=== PATIENT | female | born 2005 | race African-American/Black ===

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

== ENCOUNTER 2023-10-13 06:52 | Emergency (ER) | payer OTHER ==
[~2023-10-13] VITALS: Ht 177.8 cm; Wt 117.2 kg
[~2023-10-13 06:52] MED LIST changes: +OXYM15SP57 NASAL; +PSEU-191 PO; -PSEU-221 PO
[2023-10-13 07:03] VITALS: TEMP 98
[2023-10-13 08:08] LABS: BASOPHILS % (AUTO) 0.8 % (0.0-2.0); EOSINOPHILS % (AUTO) 1.5 % (1.0-6.0); HEMATOCRIT 33.6 % (36-46); HEMOGLOBIN 10.3 g/dL (12.0-16.0); LYMPHOCYTES # (AUTO) 3.3 K/uL (1.0-4.8); LYMPHOCYTES % (AUTO) 40.6 % (22.0-44.0); MEAN CORPUSCULAR HEMOGLOBIN 18.7 pg (26.0-34.0); MEAN CORPUSCULAR HGB CONC 30.7 G/dL (31.0-37.0); MEAN CORPUSCULAR VOLUME 61 fL (80-100); MONOCYTES # (AUTO) 0.5 K/uL (0.1-1.0); MONOCYTES % (AUTO) 6.8 % (2.0-9.0); NEUTROPHILS % (AUTO) 50.3 % (40.0-70.0); PLATELET COUNT (AUTO) 340 K/uL (150-450); RED CELL DISTRIBUTION WIDTH 19.9 % (11.5-14.5)
[2023-10-13 08:10] LABS: ANION GAP 13 mmol/L (8-16); CALCIUM, TOTAL 8.9 mg/dL (8.8-10.5); CARBON DIOXIDE 25 mmol/L (22-29); CHLORIDE 101 mmol/L (98-107); CREATININE 0.75 mg/dL (0.60-1.30); GLOMERULAR FILTR. RATE CALC > 60 mL/min (>60); GLUCOSE,RANDOM 121 mg/dL (70-110); POTASSIUM 3.1 mmol/L (3.5-5.1); SODIUM SERUM 139 mmol/L (136-145); UREA NITROGEN, BLOOD 7 mg/dL (7-18)
[2023-10-13 08:20] LABS: TROPONIN I-HIGH SENSITIVITY Less Than 4 ng/L (<51)
[2023-10-13 08:23] LABS: D-DIMER 0.27 mg/L FEU (0.00-0.50); PROTHROMBIN TIME 10.6 SEC (9.4-11.6)
[2023-10-13] MEDS: LORazepam 1 MG TABLET PO ONE (10:22)
[2023-10-13 11:10] VITALS: BP 129/68; PULSE 91; RESP 20
== END 2023-10-13 11:56 | disposition home or self-care (01) ==
LOC: EMS 06:53
DX: M54.9 Dorsalgia, unspecified (principal); F41.9 Anxiety disorder, unspecified
CPT/HCPCS: 71045; 80048; 84484; 85025; 85379; 85610; 93005; 99284; 36415-L1; 36415-TC

== ENCOUNTER 2024-06-19 08:57 | Emergency (ER) | payer OTHER ==
[~2024-06-19] VITALS: Ht 177.8 cm; Wt 117.3 kg
[~2024-06-19 08:57] MED LIST changes: -OXYM15SP57 NASAL; +OXYM15SP63 NASAL
[2024-06-19 09:09] VITALS: BP 130/79; PULSE 103; RESP 16; TEMP 98.1; O2SAT 98
[2024-06-19] MEDS: IBUPROFEN 600 MG TABLET PO ONE (10:16)
[2024-06-19] MEDS: LORazepam 1 MG TABLET PO ONE (10:16)
[2024-06-19] MEDS: LIDOCAINE 5% TRANSDERMAL PATCH TD ONE (10:17)
== END 2024-06-19 10:41 | disposition home or self-care (01) ==
LOC: EMS 08:59
DX: F41.9 Anxiety disorder, unspecified (principal); M54.9 Dorsalgia, unspecified
CPT/HCPCS: 99284; Z7502; Z7610

== ENCOUNTER 2024-07-11 04:15 | Emergency (ER) | payer OTHER ==
[~2024-07-11] VITALS: Ht 177.8 cm; Wt 117.3 kg
[2024-07-11 04:27] VITALS: BP 143/79; PULSE 102; RESP 16; TEMP 98.3; O2SAT 100
[2024-07-11] MEDS ORDERED: IBUP-1554 PO (06:39)
[2024-07-11] MEDS ORDERED: METH-659 PO (06:39)
[2024-07-11] MEDS ORDERED: LIDO700A15 TP (06:39)
[2024-07-11] MEDS: LORazepam 1 MG TABLET PO ONE (06:46)
[2024-07-11] MEDS: IBUPROFEN 600 MG TABLET PO ONE (06:47)
== END 2024-07-11 07:06 | disposition home or self-care (01) ==
LOC: EMS 04:17
DX: F41.9 Anxiety disorder, unspecified (principal); M54.50 Low back pain, unspecified
CPT/HCPCS: 99283